=== PATIENT | female | born 1990 | race Caucasian/White ===

== ENCOUNTER → 2017-08-06 | Emergency (ER) | payer OTHER ==
[~2017-08-06] VITALS: Ht 165.1 cm; Wt 83.9 kg
[~2017-08-06] MED LIST: BENZOTIC15 ML OT; CATAFLAM50 MG PO; TRAMADOL HCL50 MG PO
== END | disposition home or self-care (01) ==
LOC: ER 17:21
DX: O20.8 Other hemorrhage in early pregnancy (principal); Z34.01 Encounter for supervision of normal first pregnancy, first trimester

== ENCOUNTER 2020-05-16 17:03 | Emergency (ER) | payer OTHER ==
[~2020-05-16] VITALS: Ht 165.1 cm; Wt 81.6 kg
== END 2020-05-17 03:19 | disposition home or self-care (01) ==
LOC: ER 17:03
DX: N93.8 Other specified abnormal uterine and vaginal bleeding (principal)